=== PATIENT | female | born 1955 | race Two or more races ===

== ENCOUNTER 2024-08-12 08:23 | Outpatient (RCR) | payer MEDICARE, MEDICAID, SELFPAY ==
--- NOTE | 2024-08-12 09:13 | PTNOTE_ITS ---
PT OP Initial Eval Patient Information Outpatient Physical Therapy Treatment Date: 08/12/24 Visit Reasons: Bilateral hand pain Medical Diagnosis: M79.641 M18.12 M18.11 M79.642 Treatment Dx #1: B hand pain Treatment Dx #2: Decreased thumb ROM Start of Care: 08/12/24 Date of Onset: 2 yrs ago Smoking Status Smoking Status: Never smoker Initial Assessment Subjective: Pt is 69 yr old british speaking female R hand dominant who c/o B hand and thumb pain R>L. Increased pain with grasping and lifting things. HH chores are limited by pain and stiffness in the hands and fingers. 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 Pt may benefit from skilled therapy to meet goals and has fair/poor rehab potential due to advanced state of 1st CMC joints. 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 Ind with HEP 2. Improved weatherization coordinator strength to 30 lbs B 3. Improved thumb extension to 50 deg B 4. Tolerate HH chores x20 minutes with <=3/10 hand pain Treatment Plan 60 day POC 1. Manual therapy ? 2. Therex ? 3. Modalities as indicated, estim, moist heat, ice Frequency and Duration: 1-2x a week for 6 weeks Certification Dates: 08/12/24 to 10/10/24 Procedure Charges OP PT Eval Mod Complex 30 minutes: Yes
== END 2024-08-16 23:59 | disposition home or self-care (01) ==
LOC: CPTX 08:23
DX: M79.642 Pain in left hand (principal); M79.641 Pain in right hand; M18.0 Bilateral primary osteoarthritis of first carpometacarpal joints; E11.9 Type 2 diabetes mellitus without complications; I10 Essential (primary) hypertension
CPT/HCPCS: 97162

== ENCOUNTER 2024-09-09 09:30 | Outpatient (RCR) | payer MEDICARE, MEDICAID, SELFPAY ==
--- NOTE | 2024-08-19 10:08 | PT.ODAYNRPT ---
PT Outpatient Daily Note OP Daily Note Outpatient Physical Therapy Treatment Date: 08/19/24 Visit Reasons: left hand pain Subjective: Same as time of evaluation Objective: See F/S for therex MHP x5' B hands Assessment: Moderate pain with therex of B hands Plan: Continue per POC Length of Time (minutes) of Treatment: 30 Minutes Procedure Charges Therapeutic Exercise 30 minutes: Yes
--- NOTE | 2024-08-26 09:57 | PT.ODAYNRPT ---
PT Outpatient Daily Note OP Daily Note Outpatient Physical Therapy Treatment Date: 08/26/24 Visit Reasons: left hand pain Subjective: Continued B hand pain Objective: See F/S for therex MHP x5' B hands Assessment: Moderate pain with therex of B hands Plan: Continue per POC Length of Time (minutes) of Treatment: 30 Minutes Procedure Charges Therapeutic Exercise 30 minutes: Yes
--- NOTE | 2024-09-02 11:21 | PT.ODAYNRPT ---
PT Outpatient Daily Note OP Daily Note Outpatient Physical Therapy Treatment Date: 09/02/24 Visit Reasons: left hand pain Subjective: Continued B hand pain more yesterday than usual. Objective: See F/S for therex MHP x5' B hands Assessment: Moderate pain with therex of B hands with gripping over 1st CMC joint. Plan: Continue per POC Length of Time (minutes) of Treatment: 30 Minutes Procedure Charges Therapeutic Exercise 30 minutes: Yes
--- NOTE | 2024-09-09 10:42 | PT.ODAYNRPT ---
PT Outpatient Daily Note OP Daily Note Outpatient Physical Therapy Treatment Date: 09/09/24 Visit Reasons: left hand pain Subjective: Pt c/o L thumb pain, has been wearing wrist brace. Objective: Please see flow sheet for ther ex list. Assessment: Pt motivated to complete assigned interventions. Plan: Continue with POC. Length of Time (minutes) of Treatment: 30 Minutes Procedure Charges Therapeutic Exercise 30 minutes: Yes
== END 2024-09-16 23:59 | disposition home or self-care (01) ==
LOC: CPTX 09:30
DX: M79.641 Pain in right hand (principal); M79.642 Pain in left hand; M25.642 Stiffness of left hand, not elsewhere classified; M25.641 Stiffness of right hand, not elsewhere classified; M18.12 Unilateral primary osteoarthritis of first carpometacarpal joint, left hand; M18.11 Unilateral primary osteoarthritis of first carpometacarpal joint, right hand; I10 Essential (primary) hypertension; E11.9 Type 2 diabetes mellitus without complications
CPT/HCPCS: 97110

== ENCOUNTER 2024-10-09 09:30 | Outpatient (RCR) | payer MEDICARE, MEDICAID, SELFPAY ==
--- NOTE | 2024-09-23 10:14 | PT.ODAYNRPT ---
PT Outpatient Daily Note OP Daily Note Outpatient Physical Therapy Treatment Date: 09/23/24 Visit Reasons: LEFT HAND PAIN Subjective: Continued B hand pain and she points to the L base of the thumb Objective: See F/S for therex MHP x5' B hands Assessment: Moderate pain with therex of B hands with gripping over 1st CMC joint. Plan: Continue per POC Length of Time (minutes) of Treatment: 30 Minutes Procedure Charges Therapeutic Exercise 30 minutes: Yes
--- NOTE | 2024-09-30 09:45 | PT.ODAYNRPT ---
PT Outpatient Daily Note OP Daily Note Outpatient Physical Therapy Treatment Date: 09/30/24 Visit Reasons: LEFT HAND PAIN Subjective: Therapy and injections have helped to have less hand pain Objective: See F/S for therex P x5' Assessment: Low hand pain with gripping therex Plan: Continue per POC Length of Time (minutes) of Treatment: 30 Minutes Procedure Charges Therapeutic Exercise 30 minutes: Yes
--- NOTE | 2024-10-09 10:09 | PTNOTE_ITS ---
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 Pt has improved hot strip mill inspector strength of R hand and a little more strength in L hand. The R thumb extension ROM is still pretty limited and hasn't progressed. The L thumb extension seems to be a little better than the evalua tion by about 5 degrees. Low hand pain with gripping therex. Pt recommends she continued with therapy 4 more sessions until the 12 visits on the POC but POC expires tomorrow. Plan: We will need provider's signature on this progress note to continue per POC and extend POC dates from 10/09/24 to 11/08/24 Procedure Charges Therapeutic Exercise 30 minutes: Yes
== END 2024-10-16 23:59 | disposition home or self-care (01) ==
LOC: CPTX 09:30
DX: M79.641 Pain in right hand (principal); M79.642 Pain in left hand; I10 Essential (primary) hypertension; E11.9 Type 2 diabetes mellitus without complications; M18.0 Bilateral primary osteoarthritis of first carpometacarpal joints
CPT/HCPCS: 97110

== ENCOUNTER 2024-12-12 10:30 | Outpatient (RCR) | payer MEDICARE, MEDICAID, SELFPAY ==
--- NOTE | 2024-11-28 09:18 | PT.OIERPT ---
PT OP Initial Eval Patient Information Outpatient Physical Therapy Treatment Date: 11/28/24 Visit Reasons: Low back pain Medical Diagnosis: M54.50 Treatment Dx #1: LBP with radiculopathy Start of Care: 11/28/24 Date of Onset: 6 months ago Smoking Status Smoking Status: Never smoker Initial Assessment Subjective: Pt is 69 yr old macedonian speaking female who reports LBP worsening over the past 6 months. Pt reports increased pain with bending, lifting and twisting. Today pain is 7/10 and runs down the R LE. PLOF: pt was independent with HH chores and ADL's not limited by LBP. PMH: HTN, DM Imaging: CT of abdomen shows L2-3 disk space narrowing Pt goal: less LBP and R LE pain Objective: Trunk ArOM: ? B SB 50% of normal with pain to R ? Extension: 30% with pain around L4-5, L5-S1 ? Flexion: 10 from floor with LBP ? B rotation: 60% with pain to L ? R SLR ROM: 45 deg. L SLR: 50 deg with posterior knee neural tension, LBP ? TTP: moderate paraspinals L2-5 on R ? Neuro: R SLR: positive Assessment: ? Pt presents with trunk flexion sensitivity and overlying myofascial pain ? and TTP consistent with advanced DDD with radiculopathy. Pt may benefit from learning HEP and possibly ssx relief but has poor rehab potential due to L2-L3 disk space being so narrowed and the bone on bone situation there. 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 Ind with HEP ? 2. Improved sitting/standing tolerance to 30 minutes with <=4/10 LBP ? 3. Decreased lower paraspinal TTP from mod to min 4. Improved HH chore tolerance to at least 30 minutes with <=3/10 LBP and no ?increase in LE ssx ? Treatment Plan 1. Manual therapy ? 2. Therex ? 3. Modalities as indicated, moist heat, ice, estim, mechanical traction Frequency and Duration: 1-2x a week for 3-4 trial visits. If making progress wt goals continue to 8 visits. Certification Dates: 11/28/24 to 01/27/25 Procedure Charges OP PT Eval Mod Complex 30 minutes: Yes
--- NOTE | 2024-12-10 10:18 | PT.ODAYNRPT ---
PT Outpatient Daily Note OP Daily Note Outpatient Physical Therapy Treatment Date: 12/10/24 Visit Reasons: Low back pain Subjective: Same as evaluation Objective: See F/S for therex MHP: x7' L/S in supine Assessment: Good demo of LE stretches with low tissue irritability Plan: Continue per POC Length of Time (minutes) of Treatment: 30 Minutes Procedure Charges Therapeutic Exercise 30 minutes: Yes
--- NOTE | 2024-12-12 14:28 | PT.ODAYNRPT ---
PT Outpatient Daily Note OP Daily Note Outpatient Physical Therapy Treatment Date: 12/12/24 Visit Reasons: Low back pain Subjective: Soreness after last visit Objective: See F/S for therex MT: [facility] L/S x7' Assessment: Good demo of LE stretches with low tissue irritability Plan: Continue per POC Length of Time (minutes) of Treatment: 30 Minutes Procedure Charges Therapeutic Exercise 30 minutes: Yes
== END 2024-12-16 23:59 | disposition home or self-care (01) ==
LOC: CPTX 10:30
PROVIDERS: PCP Nurse Practitioner Family; Referring Provider Nurse Practitioner Family; Visit Provider Nurse Practitioner Family
DX: M54.16 Radiculopathy, lumbar region (principal); I10 Essential (primary) hypertension; E11.9 Type 2 diabetes mellitus without complications
CPT/HCPCS: 97110; 97162

== ENCOUNTER 2025-01-14 09:00 | Outpatient (RCR) | payer MEDICARE, MEDICAID, SELFPAY ==
--- NOTE | 2024-12-23 14:51 | PT.ODAYNRPT ---
PT Outpatient Daily Note OP Daily Note Outpatient Physical Therapy Treatment Date: 12/23/24 Visit Reasons: lOW BACK PAIN Subjective: Soreness after last visit Objective: See F/S for therex MT: [facility] L/S x7' Assessment: Good demo of LE stretches with low tissue irritability of the L/S. Moderate TTP of lumbar paraspinals with MT. Plan: Continue per POC Length of Time (minutes) of Treatment: 30 Minutes Procedure Charges Therapeutic Exercise 30 minutes: Yes
--- NOTE | 2024-12-25 13:18 | PT.ODAYNRPT ---
PT Outpatient Daily Note OP Daily Note Outpatient Physical Therapy Treatment Date: 12/25/24 Visit Reasons: lOW BACK PAIN Subjective: Less LBP lately Objective: See F/S for therex MT: [facility] L/S x7' Assessment: Good demo of LE stretches with low tissue irritability of the L/S. Moderate TTP of lumbar paraspinals with MT. Plan: Continue per POC Length of Time (minutes) of Treatment: 30 Minutes Procedure Charges Therapeutic Exercise 30 minutes: Yes
--- NOTE | 2025-01-01 13:17 | PT.ODAYNRPT ---
PT Outpatient Daily Note OP Daily Note Outpatient Physical Therapy Treatment Date: 01/01/25 Visit Reasons: lOW BACK PAIN Subjective: Less LBP lately Objective: See F/S for therex MT: [facility] L/S x5' Assessment: Good demo of LE stretches with low tissue irritability of the L/S. Moderate TTP of lumbar paraspinals with MT. Plan: Continue per POC Length of Time (minutes) of Treatment: 30 Minutes Procedure Charges Therapeutic Exercise 30 minutes: Yes
--- NOTE | 2025-01-06 12:56 | PT.ODAYNRPT ---
PT Outpatient Daily Note OP Daily Note Outpatient Physical Therapy Treatment Date: 01/06/25 Visit Reasons: lOW BACK PAIN Subjective: Less LBP lately Objective: See F/S for therex MT: [facility] L/S x7' Assessment: Good demo of LE stretches with low tissue irritability of the L/S. Moderate TTP of lumbar paraspinals with MT on the R. Plan: Continue per POC Length of Time (minutes) of Treatment: 30 Minutes Procedure Charges Therapeutic Exercise 30 minutes: Yes
--- NOTE | 2025-01-14 09:47 | PT.ODS1RPT ---
PT OP Progress/Discharge Note Date of Service: 01/14/25 Progress Note/DC Note Progress Note/Discharge Note: DC Note Patient Information Visit Reasons: lOW BACK PAIN Service Continue Service or Discharge: Discharge Discharge Date: 01/14/25 Status Subjective: Less LBP lately, not hurting today. She can sit and stand for 30+ minutes with min LBP and do HH chores. Objective: See F/S for therex MT: [facility] L/S x7' MHP L/S x5' TTP: min to none of L/S Trunk AROM: FB: 10 from floor Extension: 30% Assessment: Pt has attended the eval and 7 Rx sessions and made good progress with pain goals. She has met the goal of less TTP from mod to min of lumbar paraspinals. She has improved sitting/standing/HH chore tolerance to 30 mins with <=3/10 LBP to meet those goals. Good demo of LE stretches with low tissue irritability of the L/S as part of HEP. Plan: D/C with HEP Procedure Charges Therapeutic Exercise 30 minutes: Yes
== END 2025-01-16 23:59 | disposition home or self-care (01) ==
LOC: CPTX 09:00
PROVIDERS: PCP Nurse Practitioner Family; Referring Provider Nurse Practitioner Family; Visit Provider Nurse Practitioner Family
DX: M54.16 Radiculopathy, lumbar region (principal); I10 Essential (primary) hypertension; E11.9 Type 2 diabetes mellitus without complications
CPT/HCPCS: 97110

== ENCOUNTER → 2025-04-01 | Outpatient (CLI) | payer MEDICARE, MEDICAID, SELFPAY ==
--- NOTE | 2025-04-01 09:19 | XR_ITS ---
Examination: Bilateral hands, 6 views. Technique: AP, Oblique, Lateral each hand total 6 views Date and time of exam: April 01, 2025, 0922 hours INDICATIONS: Bilateral hand pain 5 years Findings: Severe osteopenia No fracture or dislocation involving either hand Significant osteoarthritis bilaterally involving interphalangeal joints first carpometacarpal joints No avascular necrosis No foreign bodies No cortical bone destruction IMPRESSION: Osteoarthritis as above
== END | disposition home or self-care (01) ==
PROVIDERS: PCP Nurse Practitioner Family; Referring Provider Nurse Practitioner Gerontology; Visit Provider Nurse Practitioner Gerontology
DX: M18.0 Bilateral primary osteoarthritis of first carpometacarpal joints (principal); M19.042 Primary osteoarthritis, left hand; M19.041 Primary osteoarthritis, right hand
CPT/HCPCS: 73130